=== PATIENT | female | born 1985 | race Caucasian/White ===

== ENCOUNTER 2016-11-21 12:00 | Inpatient (IN) | payer MEDICAID ==
[~2016-11-21] VITALS: Ht 170.2 cm; Wt 118.1 kg
--- NOTE | ~2016-11-21 | RESCARESUM ---
"PATIENT: PRATIK MENDOZA | | [facility] UNIT #: [id number] | [address] AGE/SEX: 31 F : [birth year] | [address] | [place] [address] ADMIT/REG DATE: 11/21/16 | ROOM: [facility] LOC: ADTC | ADTC | Summary of Residential Care Primary Counselor: Bev Swanson [facility] Date of Admission: 11/18/16 Date of Discharge: 12/13/16 Referral Source: self Primary Care Provider Prior to Admission: Dr. Martinez Admitting Diagnosis: F15.20 Stimulant Use Disorder, sever; F12.20 Cannabis Use Disorder, moderate; F17.20 Nicotine Dependent; Asthma; Discharge Diagnosis: Same as Above Goals Achieved: Client made minimal progress while in residential treatment due to being and having to leave for a doctors appointment in [place], had two emergency room visits, was found in her room napping a few times during programming. Client was placed on contract due to making statements that she was leaving more than once when she was told her fiance could not come to more than one NA/AA meeting a week on the unit. Client did complete her Getting Started, Step 1, and Relapse Prevention packets. Continued Obstacles to Sobriety/Relapse Issues: Client will need to work on herself and work a strong recovery program. Client needs to talk about past trauma. Family Issues Addressed: Client attended the first part of family education but walked out of the second half before reading her feelings letter to her fiance. Her fiance was upset because he was asked to take off his hat and he refused and walked out and she followed. Y Individual Therapy Y Group Therapy Y Educational Series on Substance Abuse N Parents/Significant Others Attended Family Program Y Acute Medical Problems During the Course of Treatment Y Transferred to Hospital During the Course of Treatment Y Accepting of Substance Abuse Problem N Non-accepting of Substance Abuse Problem N Required Psychological or Psychiatric Consultation During the Course of Treatment Completed AA Step # 1 During This Level of Care Significant Incidences During Treatment: Client was placed on contract due to making statements more than once that she was leaving treatment because her significant other could not come on the unit more than once a week for the NA/AA meetings. Client also left a week early due to her daughter being in an unsafe situation and transfered to [facility]. Client was recommended to complete IOP due to making minimal progress in residential treatment due to two emergency room visits, a doctors visit in [place], and being found sleeping during programming. PATIENT: PRATIK MENDOZA | | [facility] UNIT #: [id number] | [address] [place] [address] AGE/SEX: 31 F : [birth year] | [address] | [place] [address] ADMIT/REG DATE: 11/21/16 | ROOM: [facility] LOC: ADTC | ADTC | Summary of Residential Care Reason For Discharge: N Completed Residential TX Goals and Ready For Next Level of Care N Left Tx Against Medical Advice/Treatment Goals Not Complete N Completed Residential Tx Goals But Refusing Continuing Care Recommendations N Discharged Due to Noncompliance/Treatment Goals not Completed Y Discharged Earlier Than Planned Due to: Clients 11 year old daughter was in a potential unsafe environment so she left a week early and is recommended to complete IOP. Continuing Care Plan/Recommendations: N Intensive Partial Care Y Sponsor N Partial Care Y AA Meetings/NA Meetings Y Outpatient Y Co-dependency Services N Therapeutic Community N 1/[address] N [address] N Mental Health Therapy N Marriage Counseling Y Other Specific Continuing Care Plan: It is recommended that client check into [facility] and follow all rules and regulations while there. It is also recommended that client complete IOP due to leaving residential treatment early and making minimal progress when she was here. Client is recommended to attend 4-5 AA/NA meetings per week, complete IOP, gain a sponsor and work a strong recovery program. PRIMARY COUNSELOR: Bev Swanson"
--- NOTE | ~2016-11-21 | CLPRLASSUM ---
PATIENT: PRATIK MENDOZA | | [facility] UNIT #: [id number] | [address] [facility] AGE/SEX: 31 F : [birth year] | [address] | [place] [address] ADMIT/REG DATE: 11/21/16 | ROOM: [facility] LOC: ADTC | ADTC | Client Problem List/Assessment Summary Date: 11/28/16 Problems identified by the client: Clients life had become unmanageable due to her drug use. Client recently found out that she was and she knew that she needed help. Problems identified by significant others: Client continued use of drugs. Client's Strengths: caring, willing to change, a good mother Problem List: Code: T Client needs to become familiar with basics of recovery as she is new to treatment and Twelve Step Program. Code: T Client unresolved grief issues contributes to her continued drinking and using and needs to address these grief issues to avoid relapse. Code: T Client needs to identify ways to improve self esteem to help maintain assisted sobriety from all mood altering substances. Code: T Client does not "reach-out to others for help" and instead resumes using drugs. Code Ambrocio: T: to be addressed during course of treatment O: problem noted, expected to resolve itself with abstinence--specific tx plan not required R: problem noted, will be referred upon discharge PRIMARY COUNSELOR: Bev Swanson
--- NOTE | ~2016-11-21 | INDIVTXPL2 ---
"PATIENT: PRATIK MENDOZA | | [facility] UNIT #: [id number] | [address] AGE/SEX: 31 F : 89 | [address] | [place] [address] ADMIT/REG DATE: 11/21/16 | ROOM: [facility] LOC: ADTC | ADTC | Individualized Treatment Plan DATE: 11/28/16 Problem Statement/Issue Identified: Client needs to become familiar with basics of recovery as he/she is new to treatment and Twelve Step Program. Goal: Client will learn how to identify negative consequences of her addiction, attend AA/NA meetings and meet women in recovery. Objectives/Activities to achieve goal: 1. Client is to complete the How to Get Started packet, which will help her take a look at how her addiction has progressed in her life, and share it with her counselor and selected pages in group. Due Date: 12/04/16 Complete: Incomplete: 2. Client is to complete Step 1, learning how she compromised her core values, and share with her counselor and selected pages in group. Due Date: 12/06/16 Complete: Incomplete: 3. Client is to attend AA/NA meetings, ask for and get at least 5 names and numbers of women in recovery, so she can build a support system and gain a possible sponsor and share that list with her counselor. Due Date:on-going Complete: Incomplete: Client Signature Date Counselor Signaure: Date Outcome/Measurement of Progress Towards Goal: Counselor Signature: Date "
--- NOTE | ~2016-11-21 | TXPLANREV ---
"PATIENT: PRATIK MENDOZA | | [facility] UNIT #: [id number] | [address] [facility] AGE/SEX: 31 F : 89 | [address] | [place] [address] ADMIT/REG DATE: 11/21/16 | ROOM: [facility] LOC: ADTC | ADTC | Treatment Plan/Staffing Review Date: 12/12/16 Treatment plan was reviewed and determined appropriate as written: yes Treatment plan was reviewed and the following changes/addition/deletions are necessary: Client was discharged a week early due to her daughter being in an usafe environment. Client is also and has made minimal progress in residential treatment due to two emergency room visits, doctor visits in [place], and being caught napping during programming. Discharge plans were reviewed and determined appropriate as previously documented: Discharge plans were reviewed and determined to be as follows: Client discharged today and checked into [facility] due to having to get her daughter out of her brothers home because he has been drinking and her daughter is unsafe. Client is also and has had to go to the emergency room twice, had to go to a doctors appointment in [place], and has been caught in bed several times during programming. Client has not been able to work on herself while in residential. Client is being referred to complete IOP. Other pertinent issues discussed during this staffing review include: Client was placed on contract due to threatening to leave several times while in treatment because her boyfriend could not come up to meetings more than 1 time per week. Staff Present: Meche Doan Brenda M PRIMARY COUNSELOR: Bev Swanson Client Signature Counselor Signature Date Time "
--- NOTE | ~2016-11-21 | TXPLANREV ---
"PATIENT: PRATIK MENDOZA | | [facility] UNIT #: [id number] | [address] AGE/SEX: 31 F : 89 | [address] | [place] [address] ADMIT/REG DATE: 11/21/16 | ROOM: [facility] LOC: ADTC | ADTC | Treatment Plan/Staffing Review Date: 12/05/16 Treatment plan was reviewed and determined appropriate as written: yes, client is working on step 1. Treatment plan was reviewed and the following changes/addition/deletions are necessary: will add feelings letters Discharge plans were reviewed and determined appropriate as previously documented: Discharge plans were reviewed and determined to be as follows: Client would benefit from sober living following treatment. Other pertinent issues discussed during this staffing review include: Staff Present: Moni Douglas, Meche Gallo, Nacho Kay, Jennifer Sandoval PRIMARY COUNSELOR: Vickie ESTRADA, [facility] for Bev Swanson Client Signature Counselor Signature Date Time "
--- NOTE | 2016-11-21 15:52 | NUR ---
Admit Note: Client is a 31 y/o female. DOC is meth, last used 11/14, and she is an I.V. user. Claims she came to tx due to and has no outstanding legal issues. Brought to tx, from [facility], after being there for 5 days. Initial paperwork is done and has started programming.
--- NOTE | 2016-11-21 16:27 | NUR ---
Relapse Prevention; 1.0 hours; Client attended and actively participated in relapse prevention which focused on compulsive behaviors and relapse.
--- NOTE | 2016-11-21 23:23 | NUR ---
Education note: 1 hour lecture given by counselor on "Self Esteem"
--- NOTE | 2016-11-21 23:36 | NUR ---
Tech note: Client worked on projects for the alumni [employer] for rec and attended AA meeting SEF: day
--- NOTE | 2016-11-22 04:13 | NUR ---
BED NOTE: Client was in bed, motionless with eyes closed all three bed checks.
--- NOTE | 2016-11-22 10:53 | NUR ---
Tech note: Client is working on Getting started and mtg with samira
--- NOTE | 2016-11-22 11:36 | NUR ---
GROUP 1.5 HRS. 1:11 This client was oriented to purpose and rules of group. Discussion included betraying values and effects on others as well as being honest and old behaviors especially dishonesty and keeping secrets.
--- NOTE | 2016-11-22 13:15 | NUR ---
Education note: Client attended speaker Gerardo for education today.
--- NOTE | 2016-11-22 15:23 | NUR ---
Individual Therapy, 1.0, Client was oriented to how counseling works, about family education and release forms, visiting hours and that the first week she will be unable to make phone calls, how significant event forms work and why they are important, room checks, and reviewed the initital treatment plan. Client shared the chain of events that brought her to treatment.
--- NOTE | 2016-11-22 15:25 | NUR ---
Trauma Note: Client has suffered some trauma in both her childhood and adult years. This will be addressed in individual therapy sessions.
--- NOTE | 2016-11-22 15:26 | NUR ---
Family Note: CLient's fiance was called and a message left for him to be involved in family education. Client does not wish to have any other family involved at this time.
--- NOTE | 2016-11-22 18:10 | NUR ---
tech note: client c/o level 6 lower back pain @ 1810,tylenol 650 mg was given.
--- NOTE | 2016-11-22 19:56 | NUR ---
SPIRITUaL EDUCATION 1 HR. Today we discussed difference between spirituality and yarsanism, and then played a spiritual challenge game where group discussed thought provoking questions on spirituality and the meaning.
--- NOTE | 2016-11-22 22:42 | NUR ---
EDUCATION NOTE: 1 HR Counselor gave a lecture on Disease Concept
--- NOTE | 2016-11-22 23:48 | NUR ---
tech note: client played Pictionary for recreation & attended onsite NA mtg. Client's S/O was on the unit for the NA & meeting-tech redirected S/O for inappropriate touching during the meeting (rubbing her neck.) SE: meeting with counselor.
--- NOTE | 2016-11-23 04:12 | NUR ---
BED NOTE: Client was in bed, motionless with eyes closed all three bed checks.
--- NOTE | 2016-11-23 12:06 | NUR ---
Group 1.5 Hr Ratio 2:20/Topic today was dealing with trauma. A new peer was also orientated to group rules and goals. Client shared how she could relate to what peers were sharing and how she was in tx and used emdr and it helped.
--- NOTE | 2016-11-23 15:35 | NUR ---
Individual Therapy, 1.0, This session focused on client being able to talk about her mother and this day being the anniversary of her . Client was able to talk about her feelings and let out her emotions in a safe, non-judgemental environment.
--- NOTE | 2016-11-23 15:35 | NUR ---
Tech Note: Client participated in Spiritual Enrichment in the morning and went for an outdoor walk in the afternoon. Client stated that she is working on, "How to Get Started in Treatment."
--- NOTE | 2016-11-23 16:24 | NUR ---
Step ed./1 hr/ Focus was on step 7 "Humbly asked him to remove our shortcomings". Had them complete some questions on paper then discussed. This client participated.
--- NOTE | 2016-11-23 22:08 | NUR ---
EDUCATION NOTE 1HR: Recovery committee presented information on recovery
--- NOTE | 2016-11-23 22:11 | NUR ---
EDUCATION NOTE 1HR: Clients watched Steven Garrido video on Behavior
--- NOTE | 2016-11-23 22:39 | NUR ---
TECH NOTE: Client helped by doing crafts for the dance for REC, and attended AA meeting.
--- NOTE | 2016-11-24 04:40 | NUR ---
Bed note: client was in bed moitionless with eyes closed and no distress at all bed checks.
--- NOTE | 2016-11-24 11:48 | NUR ---
Group 1.5 Hr Ratio 1:11/Topics today were orientating a new member to group rules and goals and a couple getting started packets. Client shared her GS packet and did a good job. Client also offered positive feedback with others sharing issues and assignments.
--- NOTE | 2016-11-24 15:46 | NUR ---
PEER REVIEWS 1.25 HRS: Clt participated in peer reviews and took a risk to give open and honest feedback to those receiving a review.
--- NOTE | 2016-11-24 16:13 | NUR ---
Tech Note: Client watched video ([employer]) and is working on an Event Letter.
--- NOTE | 2016-11-24 19:11 | HP ---
ADMIT: 11/21/2016 RM/LOC: [id number] [facility] MR#: [id number] [address] [facility] [address] [place] [id number] PRATIK MENDOZA [address] [place] [address] History and Physical SEX: F AGE: 31 : 1985 DATE OF SERVICE: CHIEF COMPLAINT: Drug addiction with recent relapse on methamphetamine. CLINICAL HISTORY: The patient is a 31-year-old white female, admitted to the residential care program at the [facility] for treatment of her stimulant/methamphetamine use disorder. The patient comes to treatment after recent relapse after having had 90 days clean. The patient notes that she had been clean from August of 2016 until 11/14/2016, had over 3 months clean, then she relapsed using about a gram of meth IV. After using, she felt extremely guilty and unhappy with her self, so she immediately contacted one of her sponsors from and they helped get her into the [facility], where she has been at the [facility] for the past 5 to 6 days. The patient notes that she recently found out while at the [facility] that she is and is about 5 weeks , which is an additional motivation for her to get clean and stay sober. The patient notes that her heaviest meth use had been for the past year and a half prior to August. She had been using daily anywhere from a half a gram to 2 g per day using IV. The patient notes that she first started using meth at age 16. By her late teens, she was a daily user. She has had some periods of sobriety in the past for short periods of time and recognizes she needs help if she is going to get clean and stay sober on a long-term basis. She notes that meth is her drug of choice. She notes that she also used marijuana during her late teens and early 20s, but uses it on a very limited basis. She used to be a daily user, but now uses it only sporadically. She notes she has never really cared for alcohol and rarely drinks. She notes that she tried cocaine on 1 occasion in the past. She denies any abuse of prescription drugs. Since she started using meth heavily in her late teens, it has been her primary drug of choice and about the only thing she uses. She comes to treatment voluntarily at this time, motivated by her desire to get clean as well as the additional motivation that she is currently . PAST MEDICAL HISTORY: Previous Hospitalizations: She was hospitalized at [facility] in August of 2015 for a brief psychiatric evaluation. The patient had been 3 days for psych evaluation in July of 2015 at [facility]. Previous Operations: She had a tonsillectomy in 2009. She had removal of nasal polyps in 2012. As a teenager, she had a left ACL repair in 2003. She has had no other recent hospitalizations. CURRENT MEDICATIONS: She was started on: 1. [facility] was diagnosed as being and had a positive test there. 2. She also uses an albuterol inhaler p.r.n. for her asthma. ALLERGIES: SHE IS ALLERGIC TO PENICILLIN. OBSTETRICAL AND GYNECOLOGICAL HISTORY: She is a 6, para 3-0-2-3. She ADMIT: 11/21/2016 RM/LOC: A.507 [facility] MR#: [id number] [address] [place] [id number] PRATIK MENDOZA [address] [place] [address] History and Physical SEX: F AGE: 31 : 1985 has children; ages 11, 8, and 5. She notes that she currently does not have custody of any of her children. REVIEW OF SYSTEMS: A 12-point review of systems is otherwise negative with no other significant cardiac, pulmonary, GI, or problems noted. Do note that she is a smoker, typically smokes a half pack to a pack a day. She has been trying to cut down since she found out she is . She does have a history of asthma as already noted. No other chronic health problems reported. SOCIAL HISTORY: The patient has been once and is . Her 1st is the father of the 2 oldest children. She notes she has been with her current significant other for 1 year. She notes her current significant other is an addict in recovery. The patient notes she has graduated high school. 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 She notes because of her drug use, she has not worked in over a year. FAMILY HISTORY: The patient notes that her mother of multiple complications of multiple sclerosis in 2013. Her father is still alive. She notes there is a strong history of alcoholism on both sides of the family. She has a paternal uncle, who is an addict. She has maternal aunts and uncles, who are alcoholic. She notes that she is the oldest of 4 children in her immediate family. She notes that out of her 3 brothers, two have had significant substance abuse issues with one having a problem with meth, pot, and alcohol; the other with pot and alcohol. PHYSICAL EXAMINATION: VITAL SIGNS: Temp is 96.4, pulse 76, respirations 20, blood pressure 146/72, height 5 feet 7 inches. Her weight is 259 pounds. GENERAL: The patient is an obese 31-year-old white female, in no acute distress. HEENT: No abnormalities noted. Nose and throat noninflamed. Oropharynx normal. NECK: Supple. Thyroid not enlarged. No cervical adenopathy. LUNGS: Today are noted to be clear. HEART: Regular rhythm without murmur. ABDOMEN: Obese, soft, nontender. Bowel sounds normoactive. : Her uterus is not palpable abdominally at this time. By last menstrual, she is 5 weeks . Last menstrual period, 10/13/2016. PELVIC: Not performed. EXTREMITIES: Normal to gross exam. No peripheral edema. No clubbing or cyanosis. NEUROLOGIC: She is intact. She has no focal deficit. Balance and gait are normal. MENTAL STATUS EXAMINATION: She is pleasant, cooperative. Affect is appropriate. She has no bizarre ideation. No delusions or hallucinations. She does admit to past depressive symptoms and previous suicidal ideation, but ADMIT: 11/21/2016 RM/LOC: [facility]50[facility] MR#: [id number] [address] [facility] [address] [place], [place] [address] PRATIK MENDOZA [address] [place] [address] History and Physical SEX: F AGE: 31 : 1985 none at the current time. She is of average intelligence. Her memory is intact. Insight is limited. Judgment is limited. ASSESSMENT: At the time of admission: 1. Stimulant/methamphetamine use disorder, severe. 2. Cannabis use disorder, moderate. 3. Asthma. 4. Tobacco use disorder, moderate. 5. Intrauterine , currently at 5 weeks. PLAN: Plan is to admit the patient to the residential care program with a tentative discharge date of 12/19/2016. Upon completion of treatment, she is open to the option of going to a long term house. She recognizes the need for a supportive environment and the structure of a long term house will help to ensure a long-term sobriety. As far as her is concerned, she does have an appointment to see Dr. Martinez at the [facility]. The patient plans to follow up with Dr. Martinez, and appointment has been scheduled for her 1st OB visit. Brad Carty MD/ arlet JOB #: [id number] CC: Brad Carty, Attending Physician FAMILY PHYSICIAN, Family Physician
--- NOTE | 2016-11-24 22:20 | NUR ---
Tech Note : Client worked crafts and projects for the dance. Client watched TV. Client attended an offsite AA meeting.
--- NOTE | 2016-11-25 04:38 | NUR ---
Bed note: Client was in bed with eyes closed and no distress at all bed checks.
--- NOTE | 2016-11-25 17:55 | NUR ---
Tech Note: Client attended N.A. Panel and is working on vent letter. Client had visit.
--- NOTE | 2016-11-25 19:10 | NUR ---
tech note: client attended offsite Alumni Dance.
--- NOTE | 2016-11-26 04:54 | NUR ---
BED NOTE: Client was in bed, motionless with eyes closed all three bed checks.
--- NOTE | 2016-11-26 16:53 | NUR ---
Tech Note: Client participated in Big Book Study. Client stated that she is working on writing a Vent Letter.
--- NOTE | 2016-11-26 23:16 | NUR ---
tech note: Client attended AA Panel,[place] & participated in Community Clean. Client came to tech station @ 2300 complaining that she was cramping and spotting. Client expressed she was concerned because she has had 2 miscarriages in the past. RN was called & client was taken to the ER by tech. SE: CHALO Medina.
--- NOTE | 2016-11-27 04:23 | NUR ---
bed note: client was in bed with eyes closed and no distress at all bed checks.
--- NOTE | 2016-11-27 10:43 | NUR ---
Tech notes: Client is working on Vent Letter
--- NOTE | 2016-11-27 12:00 | NUR ---
Peer Review 1.5 hr/ Clients all participated in giving peer review to 4 peers on what they need to work on.
--- NOTE | 2016-11-27 12:55 | NUR ---
Education note: Client attended educational maryana Arias on Marijuana.
--- NOTE | 2016-11-27 16:41 | NUR ---
Recovery 101 1 hr/ Clients discussed fundamental tools and what is important to work a strong recovery program such as: 12 steps, getting and using a sponsor, meetings/home group, read C.A.L., H.O.W./being honest, service work, HP concepts/spirituality, opening up, slogans, serenity prayer, etc. Also discussed the balance, recovery as way of life, 85% is the living problem and why people still go to meetings for their lifetime.
--- NOTE | 2016-11-27 23:44 | NUR ---
Tech Note: Client attended N.A.Meeting. Client also went on walk for rec. SE:Being clean today
--- NOTE | 2016-11-27 23:58 | NUR ---
Education Note: 1 hour lecture on communication given by counselor.
--- NOTE | 2016-11-28 04:12 | NUR ---
Bed Note: client was in bed with eyes closed and no distress at all bed checks.
--- NOTE | 2016-11-28 17:06 | NUR ---
Relapse Prevention, 09/28, 1.0 hours, Client attended and actively participated in relapse prevention which focused on completing the quiz What Do You Know About Relapse?
--- NOTE | 2016-11-28 17:09 | NUR ---
Individual Therapy, 1.0, This session focused on completing clients problems/needs list and treatment plan. We also reviewed clients biopsychosocial.
--- NOTE | 2016-11-28 17:38 | NUR ---
ech Note: Client is working on vent letter. She went to APPRENTICE TECHNICIAN appt. today.
--- NOTE | 2016-11-28 23:19 | NUR ---
Tech Note: Client took walk around park for rec. Client attended A.A.Meeting. SE: Ultrasound and hearing babys heartbeat
--- NOTE | 2016-11-28 23:26 | NUR ---
Education Note: Client attended a one hour session with [facility] on HIV/AIDS/STD's for education.
--- NOTE | 2016-11-29 04:49 | NUR ---
Bed Note: client was in bed with eyes closed and no distress at all bed checks.
--- NOTE | 2016-11-29 10:30 | NUR ---
Tech notes: Client is working on Grief pkt. Step 1, Letting Go.
--- NOTE | 2016-11-29 12:46 | NUR ---
Group 1.5 Hr Ratio 1:9/Topics today were orientating two new clients to group rules and goals, feelings letters and a Getting Started Packet. Client shared a vent letter to her ex and is very blaming and has a poor me attitude about the whole situation. Client heard from a peer she needs to look at her part in the situation and client appeared to be mad at what was said as nothing was her fault.
--- NOTE | 2016-11-29 19:13 | NUR ---
Education: 1 Hour. Client attended Step 2 & Step 3 lecture given by staff.
--- NOTE | 2016-11-29 22:57 | NUR ---
Subj :Cindy back to the ER ghazala White left the NA meeting after 830 & came to the tech station c/o extreme pain. I asked her to go to her room & I notified Carley. Carley originally told her that it would be best to discharge her. Cindy started crying stating she had nowhere to go. Carley told tech to go ahead and take her to the ER. Cindy wanted to call her S/O & was told "no" ER nurse called and stated she thought Cindy was surprised that it was the same nurse she had before. The nurse wanted us to know that Cindy stated she was exhausted and just wanted to go lay down but she was told she needed to go to the meeting. Also,Cindy's S/O was at the window when she checked into the ER. Cindy wasn't allowed to call him from the unit so thats interesting how he was there by the time we got her dropped off. She was given tylenol & according to the nurse there isn't much more they can do. Because she's no x-rays can be done. The nurse did say she could meet with DR Martinez in 2-3 days.
--- NOTE | 2016-11-29 23:50 | NUR ---
Tech note: client went on a walk for recreation & left the meeting after 2029. Client came to the tech station c/o severe pain. Tech called the RN & the RN suggested to the client that she may need to discharge from treatment. The client started crying stating that she has nowhere to go. The RN instructed the tech to take Cindy to the ER. Client was taken to the ER shortly after 2099. The ER nurse called the tech station and informed tech that she was the nurse who had seen the client on previous visit. The ER nurse reported that the client stated she was just exhuasted and didn't want to have to attend programming,she just wanted to lay down. The ER nurse also reported that the client's S/O was at the window with her when she was checking into the ER. Client was given Tylenol & ER nurse said they have done what they can. they can do. The nurse did state that the client could follow up with DR Martinez in 2-3 days. When client returned to the unit she complained that the ER nurse was rude to her.
--- NOTE | 2016-11-29 23:50 | NUR ---
tech note: client went on walk for recreation & attended NA meeting. Client left the NA meeting after 2029 & came to the tech station c/o extreme pain. RN was called and suggested to the client that she may need to discharge from treatment. The client started crying stating she didn't have anywhere to go. RN instructed the tech to take the client over to the ER. Client returned to the unit @ 2300.Client complained to the techs the ER nurse was rude to her. The ER nurse had called the tech station reporting to tech that this client had stated that she was exhausted and just wanted to go lay down but had to go to programming instead. The nurse stated that she had cared for this client recently when she had come to the ER from the treatment center. The ER nurse also reported that the client's S/O was at the window when the client was checking in. The nurse commented that there isn't any further testing that needs to be done,the client can follow up with DR Martinez in 2-3 days.
--- NOTE | 2016-11-30 05:16 | NUR ---
tech note: client was motionless in no distress at all bed checks.
--- NOTE | 2016-11-30 11:15 | NUR ---
CRISIS INTERVENTION: Client decided that she was going to leave this morning because she was not allowed to lay down and was told she needed to attend programming. Client stated that sh ewas going to leave. Client spoke with S/O and believed that he was not coming to pick her up. Client then decided to stay and was told she will be put on a strict contract. If client can not follow the contract, she will be discharged. Student: Graham Fraser
--- NOTE | 2016-11-30 11:30 | NUR ---
AM GRP 1.5 HRS, Ratio 1:10/ Clt sat mostly quiet, but when speaking, had good things to say. SHe has some tx savvy, and quotes the big book and meetings, but seems to internalize it for herself.
--- NOTE | 2016-11-30 13:52 | NUR ---
Tech Note: Client went for an outdoor walk in the afternoon. Client stated that she is working on Step One and, "Grief."
--- NOTE | 2016-11-30 14:17 | NUR ---
Education 1 Hour: Client heard a lecture and saw a demonstration on "Infection Prevention."
--- NOTE | 2016-11-30 16:16 | NUR ---
step Education/1 hr/ Focus was on step 8 "made a list of all persons we had harmed". Had them complete a set of questions on paper and then discussed. This person participated.
--- NOTE | 2016-11-30 17:26 | NUR ---
Medication Note: Client took prn Tylenol for H/A rated at 3.
--- NOTE | 2016-11-30 23:14 | NUR ---
Tech note:client took walk for rec, participated in guided meditation and attended AA mtg. SE:group
--- NOTE | 2016-12-01 04:54 | NUR ---
Bed Note: Client was motionless with eyes closed at all bed checks.
--- NOTE | 2016-12-01 11:33 | NUR ---
GROUP 1.5 HRS. 1:9 Group discussion included processing step 1 assignment to included betraying values (pg. 10) and effects on onthers (pg. 11). This client was minimally involved in group discussion but appeared to be repeatedly involved in sidetalk with male peer NT. Client was allowed to be excused to the restroom due to .
--- NOTE | 2016-12-01 12:38 | NUR ---
Peer Review 1.5 hr/ Clients all participated in giving peer review to 4 peers on what they need to work on.
--- NOTE | 2016-12-01 12:46 | NUR ---
Individual Therapy, 1.0 hours, This session focused on client opening up about the traumatic events of her mother passing away, her young daughter having leukemia, and her divorce from her . Client also talked about her current relationship she is in now and her .
--- NOTE | 2016-12-01 13:46 | NUR ---
Tech Note: Client watched Predator Pt.2 video and is working on a Grief pkt. and Step 1.
--- NOTE | 2016-12-01 23:52 | NUR ---
TECH NOTE: Client participated in reading guidelines, attended optional offsite AA meeting, and watched tv/movies. Client was redirected for being in bed at shift change. Was upset at s/o for being late to bring cigs back for clients. SE: calls
--- NOTE | 2016-12-02 04:08 | NUR ---
BED NOTE: Client was in bed, motionless, with eyes closed all bed checks.
--- NOTE | 2016-12-02 16:07 | NUR ---
Tech Note: Client attended an off-site AA meeting in the morning and received visits in the afternoon. Client stated that she is working on writing Feelings Letters.
--- NOTE | 2016-12-02 19:50 | NUR ---
TECH NOTE: Client played Second Funnel for REC, attended offsite AA meeting and watched tv/movies. SE: visitors
--- NOTE | 2016-12-03 04:14 | NUR ---
Bed Note: Clt lay motionless in bed with eyes closed showing no distress at all bed checks.
--- NOTE | 2016-12-03 16:12 | NUR ---
Tech Note: Client read chapter 4 for Big Book study. Clt is working on Feelings Letters and went to [facility]. Clt had a visit.
--- NOTE | 2016-12-03 22:28 | NUR ---
Tech Note : Client listened to an AA panel member share his experience, strength and hope, watched tv and participated in community clean. Client attended an onsite ORGANIZATIONAL DEVELOPMENT CONSULTANT meeting. Her S/O was at the meeting but they sat on opposite sides of the room.
--- NOTE | 2016-12-04 04:51 | NUR ---
Bed Note: Clt lay motionless in bed with eyes closed showing no distress at all bed checks.
--- NOTE | 2016-12-04 10:23 | NUR ---
Tech notes: Client is working on Fl's
--- NOTE | 2016-12-04 11:30 | NUR ---
Group 1.5 hr/ 22:2 Clients all participated in Sculpturing today by role-playing, giving feedback and relating. This client was attentive and all did discuss relapse can happen to anyone, and how to prevent it.
--- NOTE | 2016-12-04 13:34 | NUR ---
vEducational Note: Client watched a video "Inhalent Abuse"
--- NOTE | 2016-12-04 17:00 | NUR ---
Recovery 101 1 hr/ Clients all brought Big Books and were given highlighters to use big book as a tool in recovery. Group discussion was on honesty, half- measures, selfishness, resentments, forgiveness, 12 promises, acceptance, using sponsor, and more.
--- NOTE | 2016-12-04 18:22 | NUR ---
EDUCATION NOTE: 1HR Lecture on Feelings given by counselor.
--- NOTE | 2016-12-04 22:58 | NUR ---
tech note: Client went for a walk for rec, attended NA meeting SE: got pictures
--- NOTE | 2016-12-05 04:41 | NUR ---
bed note:client was in bed with eyes closed and no distress at all bed checks.
--- NOTE | 2016-12-05 14:34 | NUR ---
Tech Note: Client participated in light stretching in the morning and went for an outdoor walk in the afternoon. Client stated that she is working on writing Feelings Letters.
--- NOTE | 2016-12-05 14:47 | NUR ---
Education 0.5 Hour: Client watched the video, "How to Sabotage Your Treatment."
--- NOTE | 2016-12-05 15:13 | NUR ---
A.M. 1.5 hr group/ratio 1:9/ Group heard some feelings letters, grief packet, and a getting started assignment. Discussed fear of making friends when they have left in the past, importants of getting a sponsor, and having cravings. This client shared her grief packet on mom who while in a skilled nursing. she did a good job.
--- NOTE | 2016-12-05 18:59 | NUR ---
Education: 1 Hour. Staff gave lecture on Step 1.
--- NOTE | 2016-12-05 23:52 | NUR ---
tech note: client played Pictionary for recreation,attended Guided Meditation & onsite AA meeting. Client's S/O was on the unit & attended the AA meeting-he was seen patting client on the bottom. SE: meeting with counselor.
--- NOTE | 2016-12-06 04:47 | NUR ---
tech note: Client was motionless in no distress at all bed checks.
--- NOTE | 2016-12-06 10:13 | NUR ---
Tech note: Client is working on Fl's
--- NOTE | 2016-12-06 13:00 | NUR ---
Education note: Client attended educational speaker "Kit" on cross addiction.
--- NOTE | 2016-12-06 13:14 | NUR ---
Group 1.5 hours 1:10 Clients orientated a new peer to group rules and purpose of group. Client shared assignment from Step 1 packet and received feedback from peers. Client shared how she was glad she made the decision to stay in treatment and how she was willing to do what she needs to do even if it is comfortable. Student: Graham Fraser
--- NOTE | 2016-12-06 18:24 | NUR ---
Education: 1 Hour. Client attended Relapse Prevention lecture given by staff.
--- NOTE | 2016-12-06 18:25 | NUR ---
SPIRITUAL EDUCATION 1 HR. ORIENTED NEWCOMERS, DISCUSSED ADDICTIVE SELF VS SPIRITUAL SELF THEN DEPICTED IN ARTWORK.
--- NOTE | 2016-12-06 23:42 | NUR ---
Tech note: client played Catch Phrase for recreation & attended onsite NA meeting. Client's S/O was redirected for coming on the unit to attend the NA meeting. Client was redirected by tech not to manufacturing cost estimator the lobby doorway, people were waiting out in the lobby till it was time to come in for the NA meeting @ 194. SE: NA.
--- NOTE | 2016-12-07 04:25 | NUR ---
Bed Note: Clt lay motionless in bed with eyes closed showing no distress at all bed checks.
--- NOTE | 2016-12-07 11:30 | NUR ---
AM GRP 1.5 HRS, Ratio 1:11/ Clt participated in grp discussion on various topics and the one she could relate to was on control. She stated she was told by a counselor she could not use the phone, and to let things go, and at first it made her angry, but now sees how it was fear based and she wanted control.
--- NOTE | 2016-12-07 14:42 | NUR ---
Tech Note: Client participated in light stretching for morning exercise and went on an outdoor walk in the afternoon. Client stated that she is working on writing Feelings Letters.
--- NOTE | 2016-12-07 16:19 | NUR ---
Education 1 Hour: Client watched the video, "Feelings" by Father Vitaly.
--- NOTE | 2016-12-07 16:53 | NUR ---
FAMILY EDUCATION 3 hrs. Client was accompanied by her S/O. They took part in the discussion on the disease concept and the progression and consequences.
--- NOTE | 2016-12-07 17:00 | NUR ---
COUNSELOR NOTE Spoke with client and S/O following family education and both verbalized understanding that S/O is only to attend one meeting/week on the unit.
--- NOTE | 2016-12-07 19:03 | NUR ---
Education 1HR: Clt watched video entitled "Say Yes To Life" by father Harjeet Phillipsoth.
--- NOTE | 2016-12-07 22:59 | NUR ---
Tech note: Clt left ED at 1805 hrs wanted vitals taken stated being sick. Vitals near normal but had coughed hard enough to wet pants. Wanted to go to room for the night and was allowed to do so.
--- NOTE | 2016-12-08 04:45 | NUR ---
BED NOTE: Client was in bed, motionless with eyes closed all bed checks
--- NOTE | 2016-12-08 09:01 | NUR ---
Client was in be sick today during scheduled session with this counselor due to primary counselor's absence.
--- NOTE | 2016-12-08 10:35 | NUR ---
Tech Note: Clt is in bed. Gave Tylenol at 1030.
--- NOTE | 2016-12-08 13:56 | NUR ---
Late Note for 12/05/16 due to illness: Relapse Prevention, 09/28, 1.0 hours, Client attended and actively participated in relapse prevention educatio which focused on internal and external triggers.
--- NOTE | 2016-12-08 14:04 | NUR ---
Late Note for 12/05/16 due to illness. Individual Therapy, 1.0 hours, This session focused on clients past relationship with her and resentments she holds after the divorce. Client also talked about her daughters bout with lukemia and clients relationship now and how he controls her every move.
--- NOTE | 2016-12-08 15:00 | NUR ---
IS 1 HR. Client was seen by this counselor due to primary counselor's absence. Client was up this afternoon as she does not have fever. Met with client and discussed treatment plan review. She was directed to write feelings letters. Also discussed her writing a letter to the baby she miscarried and her unborn child now. She believes them both to be boys. Client was also given RELAPSE PREVENTION workbook. She reports other assignments are completed. She appears to have more positive attitude at this time and is working to follow her contract.
--- NOTE | 2016-12-08 15:13 | NUR ---
Peer review 1 hr/Each person gave feedback to 4 clients using I see, I think, and I feel. This client participated with giving feedback.
--- NOTE | 2016-12-08 22:12 | NUR ---
Tech note : Client watched tv and talked on the phone. She walked to an offsite AA meeting. Her S/O was at the meeting, they were appropriate and participated with the group.
--- NOTE | 2016-12-09 04:50 | NUR ---
Bed note: Client was in bed with eyes closed and no distress at all bed checks.
--- NOTE | 2016-12-09 15:04 | NUR ---
Tech note: Client attended NA panel and is working on Fl's, Relapse prevention and had visit
--- NOTE | 2016-12-09 20:51 | NUR ---
Tech note: Client worked on beaded projects or watched basketball game for rec attended offsite AA meeting SE:kids visit
--- NOTE | 2016-12-10 05:16 | NUR ---
Bed note: client was in bed with eyes closed and no distress at all bed checks,
--- NOTE | 2016-12-10 15:34 | NUR ---
TECH NOTE: Client participated in big book study, went on a walk, and watched tv/movies. had visitors
--- NOTE | 2016-12-10 19:05 | NUR ---
tech note:Attended AA panel, participated in community clean, watched tv and movies
--- NOTE | 2016-12-11 04:22 | NUR ---
tech note: Client was motionless in no distress at all bed checks.
--- NOTE | 2016-12-11 09:50 | NUR ---
Tech note: Client is working on Relapse Prevention
--- NOTE | 2016-12-11 11:30 | NUR ---
Morning Group, 09/20 ratio, 1.5 hours, Client attended and actively participated in group. Client shared her feelings letters to her daughters.
--- NOTE | 2016-12-11 13:02 | NUR ---
Education note: Client attended education speaker Ju on tobacco
--- NOTE | 2016-12-11 13:41 | NUR ---
Contact Note: [facility] was contacted to see if client could be admitted a week early. Client has an 11 year old daughter that is in the care of her brother. Client found out this weekend that her brother has been drinking every night and having parties where he fell down the stairs while intoxicated. Client is fearful that her daughter is not safe. Client is currently and has had complication with this . Client has had to go to [facility] twice and an OBGYN appointment in [place] during her course of residential treatment. Client has been caught in her room sleeping during programming. It is believed to be in the clients best interest that she discharge from residential treatment and immediately check into [facility]. It is also recommended that she continue with IOP starting as soon as possible.
--- NOTE | 2016-12-11 20:30 | NUR ---
Information note/Client and her SO were in the lobby after my OP group was completed. SO was told to leave and he could not stay for the meeting because he was here last night. Client argued last night was for last week. The notes said he was here on the and . Client was told to go to the rec room. She said she was being picked on and was leaving AMA as she had never talked to me and did not know me.
--- NOTE | 2016-12-11 20:31 | NUR ---
Education 1HR: Clt attended lecture given by counselor on Forgiveness.
--- NOTE | 2016-12-11 21:00 | NUR ---
FAMILY EDUCATION 3 HRS., GROUP (scheduled 2 hrs.) client 0 2:10 Client attended education alone and took part in the discussion on the family roles, codependency and detachment. She identified with scapgoat and mascot roles. Client's S/O joined her for group. During group rules, it was stated "no hats" and other except for client's S/O removed their hats. He then put his arm around the client's chair and stated he would leave rather than take his hat off. He repeated it as if in an attempt to get to wear his hat despite the rule. When staff would not conceded, he walked out and left the door open. Client sat for a moment but then decided to follow him out. She was encouraged to stay and advised if she left the room, that she could not return but she left.
--- NOTE | 2016-12-11 23:08 | NUR ---
Tech note: Client started the shift off by participating in family group but left, reasons involving her S/O. Tech asked me to talk with them. I went through the powerless points and everything happening for a reason, they were ok for the moment. Nacho came out from group and asked her S/O to leave, informing him he could not come back to the unit for the meeting [facility]. There was a big uproar and she was leaving AMA, get her bag. She was calmed back down and reminded that she was leaving tomorrow, if she left AMA she would not be let back on the unit for 30 days and I was unsure of the other concequences. She agreed to stay. Her S/O showed up at the metting, I told him that the counselor said he could not return this evening so he had to leave. He left but forgot to leave her debit card. The other tech called him and he said he would be here tomorrow. She had permission from her counselor to call her daughter and while on the phone with her she asked her to call the S/o and have him bring the card here [facility]. He showed up and even though the front door was locked, it was not latched. He walked in and the drama started all over. We finally got him out of here without further incident.
--- NOTE | 2016-12-12 04:11 | NUR ---
Bed Note: Clt lay motionless in bed with eyes closed showing no distress at all bed checks.
--- NOTE | 2016-12-12 09:06 | NUR ---
DISCHARGE NOTE Client completed treatment and left the facility with a female friend, taking all personal belongings with her. Discharge instructions were reviewed and a signed copy provided to the client.
--- NOTE | 2017-01-10 09:02 | DS ---
ADMIT: 11/21/2016 RM/LOC: [facility] MR#: [id number] [address] [id number] PRATIK MENDOZA [address] [place] [address] General Discharge Summary SEX: F AGE: 31 : 1985 ADMISSION DATE: 11/21/2016 DISCHARGE DATE: 12/12/2016 ADMITTING DIAGNOSIS: As per history and physical. FINAL DIAGNOSES: As follows: 1. Stimulant/methamphetamine use disorder, severe. 2. Cannabis use disorder, moderate. 3. Asthma. 4. Tobacco use disorder, moderate. 5. Intrauterine , currently at 9 weeks. CLINICAL HISTORY: The patient is a 31-year-old white female, admitted to the residential care program at the [facility] for treatment of her methamphetamine use disorder. The patient comes to treatment after recent relapse. For details of her pattern of usage and problems associated with her ongoing substance abuse and chemical dependency, please see the clinical history portion of the dictated history and physical. Please also see dictated history and physical for pertinent past medical history and physical exam findings. LABORATORY AND X-RAY SUMMARY FROM THIS ADMISSION: Laboratory included a urinalysis done on 11/22/2016, which was positive for urinary tract infection, 3+ leukocyte esterase, 28 wbc's per high-power field, few bacteria. The patient was subsequently treated for that urinary tract infection. HOSPITAL COURSE: The patient was admitted to the residential care program and assigned to her primary counselor, Bev Swanson LM, [facility]. The patient remained in the treatment program from 11/18/2016 through 12/13/2016. While in treatment, she participated in individual therapy and group therapy. She was also given the educational series on substance abuse and worked on many of these assignments throughout her stay at the treatment program. The patient attended family education and family group sessions. Her fiance did attend sessions as well. While in treatment, she was accepting of her substance abuse problem but made only minimal progress while in residential treatment. She had to be placed on a contract due to making repetitive statements that she was going to leave treatment because her significant other could not come on the unit more than once a week. She also was noted to have left treatment a week earlier than planned due to her daughter being in an unsafe situation and arrangements were made for her and her daughter to then reside at [facility]. The patient was encouraged to get started immediately upon discharge in intensive outpatient to complete treatment therefore she could reside at [facility] and take care of her child and do intensive outpatient. She made minimal progress in residential treatment due to two emergency room visits as well as a visit to her [facility] in [place]. She also was noted on a couple of occasions to be found sleeping during programing. She was discharged earlier than planned due to her 11-year-old daughter being in a potentially unsafe environment with plans for her to continue in intensive outpatient upon discharge. Her condition at discharge was essentially unchanged. Prognosis was felt to be somewhat poor. She was discharged to intensive outpatient ADMIT: 11/21/2016 RM/LOC: A.[facility] MR#: [id number] [address] [place] [id number] PRATIK MENDOZA [address] [place] [id number] General Discharge Summary SEX: F AGE: 31 : 1985 program. She is to complete intensive outpatient. She then also needs to do further codependency treatment. The patient was to check in to [facility] on her day of discharge, reside there, and follow all their rules and regulations while there. She is to continue in intensive outpatient. She is to attend 4 to 5 AA or NA meetings per week and maintain regular contact with a sponsor. CONDITION AT DISCHARGE: As noted was minimally improved. PROGNOSIS: Guarded. DISCHARGE MEDICATIONS: Her medications at discharge included: 1. vitamin one daily. 2. Pristiq 50 mg one daily. FOLLOWUP: She is to follow up with her [facility] RELATIONS COORD[facility] in [place] on her . She needs to follow up with [facility] on her psychotropic medications. Brad Carty MD/ arlet JOB #: [id number] CC: Brad Carty MD, Attending Physician NO FAMILY PHYSICIAN, Family Physician
== END 2016-12-12 08:58 | disposition home or self-care (01) | DRG 781 ==
LOC: ADTC 12:00
PROVIDERS: ADMIT Family Medicine
PROC: HZ43ZZZ Group Counseling for Substance Abuse Treatment, 12-Step (ICD-10-PCS; principal; 2016-11-21)
PROC: HZ34ZZZ Individual Counseling for Substance Abuse Treatment, Interpersonal (ICD-10-PCS; principal; 2016-11-21)
DX: O99.321 Drug use complicating pregnancy, first trimester (principal); F15.20 Other stimulant dependence, uncomplicated; O23.41 Unspecified infection of urinary tract in pregnancy, first trimester; F12.20 Cannabis dependence, uncomplicated; O99.511 Diseases of the respiratory system complicating pregnancy, first trimester; J45.909 Unspecified asthma, uncomplicated; O99.331 Smoking (tobacco) complicating pregnancy, first trimester; F17.210 Nicotine dependence, cigarettes, uncomplicated; Z63.72 Alcoholism and drug addiction in family; Z3A.01 Less than 8 weeks gestation of pregnancy

== ENCOUNTER 2016-11-26 23:11 | Emergency (ER) | payer MEDICAID ==
--- NOTE | 2016-11-28 14:00 | ER ---
ADMIT: 11/26/2016 RM/LOC: ER [facility] MR#: [id number] [address] [id number] PARTIK MENDOZA [address] [place] [address] Emergency Room Report SEX: F AGE: 31 : 1985 DATE: 11/26/2016 ADDENDUM: See T-sheet for complete H and P. A 31-year-old female, who is AB2, comes in complaining of some left lower quadrant crampy pain and some spotting. She is unsure of the exact date but thinks she might be about 6-7 weeks based on her last menstrual period. We ended up getting beta quant. It was 11,410. We got a transvaginal ultrasound, which shows: 1. Single early viable intrauterine gestation. There was some bradycardia, suggest serial beta HCG levels and repeat ultrasound in 1 week to confirm viability. 2. Subchorionic hemorrhage. No ectopic was seen. EMERGENCY DEPARTMENT COURSE: The patient will be discharged, go back to her drug treatment program. She is encouraged to continue to stay with the program and not use any illicit drugs, and she is to follow up as scheduled this week with her postpartum nurse. Avery Tsai MD/ arlet JOB #: [id number] CC: Axel Pina MD, Attending Physician Shira Martinez MD, Family Physician
== END 2016-11-27 01:28 | disposition home or self-care (01) ==
LOC: ER 23:11
DX: O20.8 Other hemorrhage in early pregnancy (principal); O99.331 Smoking (tobacco) complicating pregnancy, first trimester; Z3A.01 Less than 8 weeks gestation of pregnancy; Z87.440 Personal history of urinary (tract) infections; Z88.0 Allergy status to penicillin; Z79.899 Other long term (current) drug therapy

== ENCOUNTER 2016-11-29 21:06 | Emergency (ER) | payer MEDICAID ==
--- NOTE | 2016-12-05 07:42 | ER ---
ADMIT: 11/29/2016 RM/LOC: ER [facility] MR#: [id number] [place], [place] [address] PRATIK MENDOZA [address] [place] [address] Emergency Room Report SEX: F AGE: 31 : 1985 DATE: 11/29/2016 TIME: 2105 Please refer to my T-sheet for complete H and P. HISTORY OF PRESENT ILLNESS: Briefly, the patient is a 31-year-old who was just in here, had an ultrasound on the , so 3 days ago. She is . She is over at [facility] going through rehab for methamphetamine. She still smokes half a pack a day. She comes in with left flank pain. Says it is mild. She did not think it is that bad. She asked for some Tylenol over there and they sent her over here. PHYSICAL EXAMINATION: VITAL SIGNS: Stable. HEENT: Grossly normal. BACK: She has a little bit of tenderness in the left flank, very minimal. No rebound. No guarding. ABDOMEN: Soft. EMERGENCY DEPARTMENT COURSE: CBC normal except hemoglobin 11.4. Chemistries normal. UA normal except 3 red cells. Gave her Tylenol and Zofran. She is feeling much better and ready for discharge. ASSESSMENT: 1. Left flank pain, mild. 2. . PLAN: Fluids. Return if worse. Follow up with Fish. Tylenol. Ramón Santana MD/ arlet JOB #: [id number] CC: Ramón Santana MD, Attending Physician Shira Martinez MD, Family Physician
== END 2016-11-29 22:48 | disposition home or self-care (01) ==
LOC: ER 21:06
DX: O99.89 Other specified diseases and conditions complicating pregnancy, childbirth and the puerperium (principal); R10.9 Unspecified abdominal pain; O99.331 Smoking (tobacco) complicating pregnancy, first trimester; F17.210 Nicotine dependence, cigarettes, uncomplicated; Z88.0 Allergy status to penicillin; Z3A.01 Less than 8 weeks gestation of pregnancy

== ENCOUNTER 2017-02-15 10:51 | Emergency (ER) | payer MEDICAID ==
--- NOTE | 2017-02-16 13:29 | ER ---
ADMIT: 02/15/2017 RM/LOC: ER [facility] MR#: [id number] [address] [facility] [address] [place], [place] [id number] CINDY MENDOZA [address] [place] [address] Emergency Room Report SEX: F AGE: 32 : 1985 DATE: 02/15/2017 Cindy is 18 weeks . She was at court today when she kind of passed out, now complains of a headache. She also mentions that she had bacterial vaginosis and did not tell us originally on intake of information. She has not been able to get her prescription in [place]. She did not have breakfast this morning and she does not hydrate well. The rest of the physical examination is within normal limits. We did do an EKG, which was sinus rhythm, 86. No ST depression or elevation. Her CMP totally clear. BUN is 4. Beta HCG 11,552. WBC 11.3, hematocrit is 36.6, platelets are 302. Urine is contaminated and when I approach her for it, she tells me that she had bacterial vaginosis and forgot to tell us that she also has medications she has not picked up. When I asked her that we needed to get a sample of urine that was clean so we could culture it, she refused. She first says, yes go ahead and cath and then she refused the catheter. So at this time, I am discharging her with instructions to follow up with her doctor, go citrus picker her prescription and start the therapy immediately. Follow up with Dr. Maritnez, ondina, and vitamins. RAGHAVENDRA Castañeda / Avery Tsai MD / arlet JOB #: [id number] CC: Avery Tsai MD, Attending Physician
== END 2017-02-15 13:29 | disposition home or self-care (01) ==
LOC: ER 10:51
DX: O99.282 Endocrine, nutritional and metabolic diseases complicating pregnancy, second trimester (principal); E86.0 Dehydration; O99.89 Other specified diseases and conditions complicating pregnancy, childbirth and the puerperium; R55 Syncope and collapse; O23.592 Infection of other part of genital tract in pregnancy, second trimester; B96.89 Other specified bacterial agents as the cause of diseases classified elsewhere; O99.332 Smoking (tobacco) complicating pregnancy, second trimester; F17.210 Nicotine dependence, cigarettes, uncomplicated; Z3A.18 18 weeks gestation of pregnancy; Z88.0 Allergy status to penicillin